=== PATIENT | female | born 1960 | race Caucasian/White ===

== ENCOUNTER 2016-05-21 18:58 | Emergency (ER) | payer OTHER ==
--- NOTE | 2016-05-21 19:51 | ERNOTE ---
ER Female HPI Date of Service: 05/21/16 Stated Complaint: UTI Time Seen by Provider: 05/21/16 19:21 Source: patient Exam Limitations: no limitations Immunizations: IMMUNIZATION HX Immunizations Up to Date Yes History of Influenza Vaccine Yes Hx Pneumococcal Vaccination Yes Allergies/Adverse Reactions: Allergies soy Allergy (Verified 05/21/16 19:11) Home Medications: HOME MEDICATIONS Calcium Carbonate/Vitamin D3 [Calcium 600-Vit D3 400 Tablet] 2 each PO DAILY [Last Taken 08/30/14 07:00 2 tabs] Melatonin 10 mg PO HS PRN 10/05/13 [Last Taken 08/29/14 21:00 10mg] Multivitamins [Multivitamin Kd] 1 cap PO DAILY 10/05/13 [Last Taken 21:00] DULoxetine HCL [Cymbalta] 30 mg PO DAILY 07/19/15 [Last Taken Unknown] Dexlansoprazole [Dexilant] 60 mg PO DAILY 07/19/15 [Last Taken Unknown] Solifenacin Succinate [Vesicare] 10 mg PO DAILY 07/19/15 [Last Taken Unknown] Metoclopramide HCl [Reglan] 5 mg PO ACHS #28 tab 07/20/15 [Last Taken Unknown] - History of Present Illness Narrative: Pt. comes in with c/o dysuria, frequency, urgency and RUQ pain for two days. Pt. denies any fever, SOB, NVD, but does state that she has intermittent vertigo that she is undergoing treatment for at this time. Pt. denies any alleviating or aggravating factors but does state that her symptoms are worse first thing in the morning. Review of Systems - Review of Systems Constitutional: Present: no symptoms reported. Absent: fever, chills, fatigue, malaise EYE: Present: no symptoms reported ENT: Present: no symptoms reported Respiratory: Present: no symptoms reported. Absent: shortness of breath, cough , wheezing Cardiology: Present: no symptoms reported. Absent: chest pain, palpitations, edema Gastrointestinal/Abdominal: Present: abdominal pain - RUQ. Absent: nausea, vomiting, diarrhea Genitourinary: Present: frequency, pain, dysuria, decreased urinary output. Absent: hematuria, discharge Musculoskeletal: Present: no symptoms reported. Absent: back pain, joint pain Skin: Present: no symptoms reported Neurological: Present: no symptoms reported All Other Systems: All systems neg except as marked - Patient's Past Medical History Patient History - Medical: Depression, GERD, Migraines, Osteoarthritis, Osteoporosis, Other - vertigo Patient History - Cardiac/Respiratory: No pertinent hx Patient History - Cancer: No Hx of Cancer Patient History - Surgical Procedures: Cholecystectomy, Gastric Bypass, Hysterectomy, Other - Family History Mother Family History - Cardiac/Respiratory: Coronary Heart Disease Father Family History - Cardiac/Respiratory: CVA/Stroke - Social History Living Situations: home Does anyone smoke in the home?: No Smoking Status: Never smoker Alcohol Use: rarely Drug Use: none Physical Exam - Physical Exam General Appearance: Present: wd/wn, alert, no apparent distress Eye Exam: Normal inspection: bilateral, PERRL: bilateral, EOMI: bilateral Ears, Nose, Throat: Present: normal ENT inspection, hearing grossly normal, normal pharynx Neck: Present: normal inspection, nontender. Absent: lymphadenopathy (R), lymphadenopathy (L) Respiratory: Present: no respiratory distress, normal breath sounds, no accessory muscle use, chest nontender, lungs clear Cardiovascular/Chest: Present: regular rate, rhythm, no murmur, normal peripheral pulses Gastrointestinal/Abdominal: Present: normal bowel sounds, nondistended, soft, no organomegaly, tenderness - RUQ mild. Absent: McBurney sign, Obturator sign, Muniz sign, Psoas sign Back Exam: Present: normal inspection, normal range of motion, no CVA tenderness , no vertebral tenderness Extremity Exam: Present: normal inspection Neurological Exam: Present: alert, oriented, normal mood/affect, no motor/ sensory deficits, digital recruiter II-XII nml as tested, normal cerebellar test Skin Exam: Present: normal color, warm/dry. Absent: pallor, skin rash ED Progress - Results and Orders Patient's Lab Results:: I have reviewed the patient's lab results. - Vital Signs Patient's Vital Signs:: I have reviewed the patient's vital signs. Vital Signs: Vital Signs 05/21/16 19:05 Temperature 35.9 C L Pulse Rate 76 Respiratory 14 Rate Blood Pressure 132/84 O2 Sat by Pulse 98 Oximetry - Progress/Reassessment Chief Complaint: Genitourinary Problem Departure Clinical Impression: Dehydration - Departure Disposition: Home self-care Condition: Good Instructions: Dehydration, Adult, [id number] Additional Instructions: Please follow up with your primary provider in 2-3 days if no improvement. Referrals: Laila Diaz ARNP [Primary Care Provider] -
[2016-05-21 20:22] LABS: Urine Bilirubin Negative (NEGATIVE); Urine Blood Negative /ul (NEGATIVE); Urine Ketone Negative (NEGATIVE); Urine Nitrite Negative (NEGATIVE); Urine Protein Negative (NEGATIVE); Urine Specific Gravity >=1.030 SP.GR. (1.005-1.010); Urine Urobilinogen Normal (NORMAL)
[2016-05-21 20:23] LABS: Urine Appearance Clear; Urine Bacteria None Seen; Urine Color Yellow; Urine Mucus Few - 1+; Urine RBC None Seen /hpf (0-5); Urine WBC 0-5 /hpf (0-5)
[2016-05-21 20:25] LABS: Hematocrit 36.5 % (37.0-47.0); Hemoglobin 11.6 gm/dL (12.5-16.0); Mean Cell Volume 86.7 fl (78-100); Mean Corpuscular Hemoglobin 27.6 pg (27-31); Mean Corpuscular Hgb Conc 31.8 g/dl (32-36); Mean Platelet Volume 9.2 fl (6.0-9.5); Neutrophil # 4.4 K/mm3 (1.3-6.0); Neutrophil % 56.4 % (42-75.0); Platelet Count 309 K/mm3 (150-450); Red Blood Count 4.21 M/mm3 (4.2-5.4); Red Cell Distribution Width 13.9 % (11.5-14.0); White Blood Count 7.8 K/mm3 (4.0-10.5)
[2016-05-21 20:40] LABS: Albumin * 3.7 gm/dl (3.4-5.0); Anion Gap 14.6 mmol/L (6.8-13.8); BUN/Creatinine Ratio 22.6 (9.0-21.6); Bilirubin, Total 0.2 mg/dL (0.0-1.1); Ca. Corrected For Albumin 8.6 mg/dL (8.4-10.2); Calcium * 8.7 mg/dL (7.9-10.9); Carbon Dioxide 27.2 mmol/L (24-32.6); Potassium 4.8 mmol/L (3.4-4.6); Total Protein 7.2 gm/dL (6.2-8.2)
[2016-05-21 20:52] VITALS: BP 135/81
== END 2016-05-21 21:36 | disposition home or self-care (01) ==
LOC: ER 18:58
DX: E86.0 Dehydration (principal); K21.9 Gastro-esophageal reflux disease without esophagitis; F32.9 Major depressive disorder, single episode, unspecified; Z98.84 Bariatric surgery status

== ENCOUNTER 2016-11-15 07:04 | Emergency (ER) | payer OTHER ==
--- NOTE | 2016-11-15 07:25 | ERNOTE ---
Upper Extremity HPI - General Extremities Pain Location: forearm: left, wrist: left Time Seen by Provider: 11/15/16 07:11 Source: patient Exam Limitations: no limitations - Immun/Allergies/Home Medications Immunizations: IMMUNIZATION HX Immunizations Up to Date Yes History of Influenza Vaccine Yes Hx Pneumococcal Vaccination Yes Allergies/Adverse Reactions: Allergies Allergy/AdvReac Type Severity Reaction Status Date / Time soy Allergy Verified 11/15/16 07:09 Home Medications: HOME MEDICATIONS Calcium Carbonate/Vitamin D3 [Calcium 600-Vit D3 400 Tablet] 2 each PO DAILY [Last Taken 08/30/14 07:00 2 tabs] Multivitamins [Multivitamin Kd] 1 cap PO DAILY 10/05/13 [Last Taken 21:00] DULoxetine HCL [Cymbalta] 30 mg PO DAILY 07/19/15 [Last Taken Unknown] Dexlansoprazole [Dexilant] 60 mg PO DAILY 07/19/15 [Last Taken Unknown] Metoclopramide HCl [Reglan] 5 mg PO ACHS #28 tab 07/20/15 [Last Taken Unknown] HYDROcodone/ACETAMINOPHEN [Lorcet 5-325 mg Tablet] 1 each PO QID PRN #20 tablet 11/15/16 [Last Taken Unknown] - History of Present Illness Narrative: Pt was at work at attempted to sit down on a chair and the chair moved and she fell on to her left outstretched hand. She complains of hand, wrist and distal forearm pain. Occurred: just prior to arrival Location of Incident: work Severity: moderate Method of Injury: Reports: fell Reason for Fall: Reports: other - chair moved Loss of Consciousness: Reports: no loss of consciousness Modifying Factors - (Improves): Reports: immobilization Modifying Factors - (Worsens): Reports: movement Associated Symptoms: Denies: tingling, weakness Other Injuries: Reports: none Review of Systems - Review of Systems Constitutional: Present: no symptoms reported EYE: Present: no symptoms reported ENT: Present: no symptoms reported Respiratory: Present: no symptoms reported Cardiology: Present: no symptoms reported Gastrointestinal/Abdominal: Present: no symptoms reported Genitourinary: Present: no symptoms reported Musculoskeletal: Present: See HPI. Absent: back pain, neck pain Skin: Present: no symptoms reported Neurological: Absent: numbness Endocrine: Present: no symptoms reported Hematologic/Lymphatic: Present: no symptoms reported Psych: Present: no symptoms reported - Patient's Past Medical History Patient History - Medical: Depression, GERD, Migraines, Osteoarthritis, Osteoporosis, Other Patient History - Cardiac/Respiratory: No pertinent hx Patient History - Cancer: No Hx of Cancer Patient History - Surgical Procedures: Cholecystectomy, Gastric Bypass, Hysterectomy, Other Patient History - Other: None - Family History Mother Family History - Cardiac/Respiratory: Coronary Heart Disease Father Family History - Medical: No pertinent hx Family History - Cardiac/Respiratory: CVA/Stroke, Hyperlipidemia Family History - Cancer: No pertinent family hx - Social History Living Situations: home Abuse History: No History of abuse Psych History: Hx of Depression Does anyone smoke in the home?: No Alcohol Use: rarely Drug Use: none - Immunizations Immunizations Up to Date: Yes Hx Pneumococcal Vaccination: Yes History of Influenza Vaccine: Yes Physical Exam - Physical Exam General Appearance: Present: wd/wn, alert, mild distress Ears, Nose, Throat: Present: normal ENT inspection Neck: Present: normal inspection, nontender, supple Back Exam: Present: normal inspection, normal range of motion Extremity Exam: Present: normal except - - left wrist tenderness both radial and ulnar sides and up 4-6 cm up wrist. left hand more radial side proximal medicarpals Skin Exam: Present: warm/dry, other - mild erythema of left wrist ED Progress - Vital Signs Vital Signs: Vital Signs 11/15/16 07:06 Temperature 35.9 C L Pulse Rate 76 Respiratory 12 Rate Blood Pressure 166/76 O2 Sat by Pulse 99 Oximetry - X-Ray X-Ray #1 X-Ray: wrist - left: non-displaced oblique distal radius fracture extending into the joint space. minimally displaced ulnar styloid fracture X-Ray #2 X-Ray: hand Interpretation: Reviewed by me X-ray Comments: distal radius fracture and ulnar styloid fracture - Progress/Reassessment Chief Complaint: Wrist Injury/Pain Progress:: Improved Progress Note-Subjective: 11/15/16 07:55 Spoke with [facility], He recommends OCL and call for appt. in the clinic. Departure Clinical Impression: Radius distal fracture Qualifiers: Encounter type: initial encounter Fracture type: closed Fracture morphology: other intra-articular Laterality: left Qualified Code(s): S52.572A - Other intraarticular fracture of lower end of left radius, initial encounter for closed fracture Fracture of ulnar styloid Qualifiers: Encounter type: initial encounter Fracture type: closed Fracture alignment: nondisplaced Laterality: left Qualified Code(s): S52.615A - Nondisplaced fracture of left ulna styloid process, initial encounter for closed fracture - Departure Disposition: Home Follow Up Needed Condition: Good Instructions: Colles Fracture Additional Instructions: See orthopedics as scheduled. take pain meds as needed. Keep splint on until seen by orthopedics Referrals: Candido [facility] PAC [[facility]] - Prescriptions: HYDROcodone/ACETAMINOPHEN [Lorcet 5-325 mg Tablet] 1 each PO QID PRN #20 tablet PRN Reason: Pain
--- OUTSIDE RECORDS SUMMARY | 2016-11-15 07:43 | XMS REPORT | Continuity of Care Document ---
:1960 Author Organization [facility] [place] [address] Care Team Providers Name Role Phone Unavailable Primary Care Provider Unavailable Source Comments This disclosure is being made pursuant to the [employer] program and maynot contain all information available regarding this patient.[facility] Active Allergies and Adverse Reactions Not on File Current Medications Be aware that medications may not be up to date as of this document. Alwaysverify current medications with the patient. Not on file Active Problems Not on file Social History Tobacco Use Types Packs/Day Years Used Date Never Assessed Plan of Care Health Maintenance Due Date Last Done Comments Retired-Pertussis Vaccine Adult 1980 Retired-Tetanus Vaccine Adult 1980 Pap Smear 1982 Mammogram 2001 Colonoscopy 10/10/2011 Well Adult Visit 10/10/2011 Retired-INFLUENZA VACCINE 01/18/2015 Results from Last 3 Months Not on file
[2016-11-15] MEDS ORDERED: ONDANSETRON HCL/PF 2 MG/ML VIAL IV ONE (07:54)
[2016-11-15] MEDS ORDERED: NALBUPHINE HCL 20 MG/ML AMPUL IV ONE (07:54)
[2016-11-15] MEDS ORDERED: ONDANSETRON HCL/PF 2 MG/ML VIAL ONE (07:57)
[2016-11-15] MEDS ORDERED: NALBUPHINE HCL 20 MG/ML AMPUL ONE (07:57)
[2016-11-15 08:05] VITALS: BP 156/84
== END 2016-11-15 08:15 | disposition home or self-care (01) ==
LOC: ER 07:04
PROC: 2W3DX1Z Immobilization of Left Lower Arm using Splint (ICD-10-PCS; principal; 2016-11-15)
DX: S52.572A Other intraarticular fracture of lower end of left radius, initial encounter for closed fracture (principal); S52.615A Nondisplaced fracture of left ulna styloid process, initial encounter for closed fracture; W07.XXXA Fall from chair, initial encounter; Y93.89 Activity, other specified; Y92.238 Other place in hospital as the place of occurrence of the external cause; Y99.0 Civilian activity done for income or pay; F32.9 Major depressive disorder, single episode, unspecified
CPT/HCPCS: 29125; 73110; 73130; 96374; 96375; 99284; J2405

== ENCOUNTER 2016-12-10 14:16 | Day surgery (SDC) | payer OTHER ==
[~2016-12-10 14:16] MED LIST: RINGERS SOLUTION,LACTATED 1,000 ML IV PRN; ceFAZolin SODIUM 1 GM VIAL IV PRN
--- OUTSIDE RECORDS SUMMARY | 2016-12-10 14:19 | XMS REPORT | Clinical Summary ---
:1960 Author Organization [facility] [place] [address] Care Team Providers Name Role Phone Unavailable Primary Care Provider Unavailable Source Comments This disclosure is being made pursuant to the [employer] program and maynot contain all information available regarding this patient.[facility] Allergies Not on File Current Medications Be aware that medications may not be up to date as of this document. Alwaysverify current medications with the patient. Not on file Active Problems Not on file Social History Tobacco Use Types Packs/Day Years Used Date Never Assessed Sex Assigned at Date Recorded Not on file Last Filed Vital Signs Not on file Plan of Treatment Health Maintenance Due Date Last Done Comments Retired-Pertussis Vaccine Adult 1980 Retired-Tetanus Vaccine Adult 1980 Pap Smear 1982 Mammogram 2001 Colonoscopy 10/10/2011 Well Adult Visit 10/10/2011 Retired-INFLUENZA VACCINE 01/18/2015 Results Not on filefrom Last 3 Months
[2016-12-10] MEDS ORDERED: RINGERS SOLUTION,LACTATED 1,000 ML IV ONE ×2 (15:05→17:04)
--- NOTE | 2016-12-10 18:34 | OR ---
Operative Report - Dictated Report Narrative: Date: 12/10/2016 Surgeon: Adriano Cortes M.D. Ergonomics Consultant: [facility] PA-C Preoperative diagnosis: Left Distal radius fracture 4 fragments with intra- articular extension Postoperative diagnosis: Left Distal radius fracture 4 fragments with intra- articular extension Operation: 1 - Open reduction internal fixation of left distal radius fracture 4 fragments with intra-articular extension 2 - Intraoperative interpretation of x-rays Retained implants: [employer] D rad left standard distal radius plate with associated screws Anesthesia: General plus regional Tourniquet time: 77 Minutes at 250 mmHg Estimated blood loss: Minimal Drains: None Specimen: None Complications: None Indications: Mrs. Thibodeaux is a 56-year-old female who injured the left arm after foraminal fall. They were initially treated in the ER and splinted. Seen in the clinic and discuss the options for treatment. Initially she elected for nonoperative treatment however she had some subsidence or fracture notable displacement of the intra-articular fracture. Based on these findings we recommended surgical treatment. She wished to proceed with surgical treatment. The risks and benefits alternatives were discussed. Risks of , blood clots, bleeding, infection, nerve/tendon/blood vessel injury, malunion, nonunion , failure of implants, prominent implants, delayed tendon rupture, and need for additional procedures were discussed. Consent was obtained in the clinic. Procedure: After marking the correct extremity in the preoperative holding area, the patient was taken to the operating room. A timeout was performed. Anesthesia placed a regional block followed by general anesthetic. The arm was placed on an armboard with all bony prominences well-padded on the rest of the body. IV antibiotics consisting of Ancef were administered. A well-padded tourniquet was applied to the upper surgical arm. The arm was pre-scrubbed with chlorhexidine and prepped and draped in a standard sterile fashion. After exsanguinating the extremity and inflating the tourniquet to 250 mmHg, a longitudinal incision was made over the flexor carpi radialis. This was sharply dissected down through the skin to the tendon sheath. The tendon sheath was incised in line with the tendon. The tendon was mobilized radially, and the deep fascia was incised. The flexor pollicis longus was mobilized ulnarly exposing the pronator quadratus. Pronator quadratus was elevated off the radial aspect of the distal radius exposing the fracture. The fracture was noted to be similar to a plateau and that there was a intra-articular displaced isolated fragment. A bone window was made over the volar aspect of the wrist. The fractures proximal and 3 weeks old and thus the fracture fragments had begin to heal some. An osteotome was utilized in order to elevate the volar and dorsal aspects of the fragment. A small dorsal incision was made in order to assist with the dorsal ulnar fragment by windowing around the extensor tendons. There was a radial styloid and a dorsal ulnar fragment which were mobilized back in the place. Using mini C-arm, the fracture was reduced and preliminarily pinned in the place through the radial styloid. Once it was felt that we adequately preliminarily stabilized the fracture, the plate was pinned in the place. This was visualized on AP and lateral views to be centered over the distal radius as well as not excessively distal. Once it was felt that the plate was in the correct position a series of distal locking and proximal nonlocking and locking screws were placed. Mini C-arm was utilized in order to confirm the length and placement of the screws. Once the wrist was stabilized, final images were obtained to ensure that the screws were not prominent dorsally nor into the joint space. The distal radial ulnar joint was then stressed in supination and pronation and neutral, and it was noted to be stable. It was felt that the fracture was adequately stabilized and the wounds were then thoroughly irrigated. The pronator quadratus was repaired over the plate using 4-0 Vicryl. The wounds were again thoroughly irrigated and tourniquet was deflated. Hemostasis was obtained and there was no excessive bleeding. Subcutaneous tissue was closed with 4-0 Vicryl and the skin with 4-0 nylon. Sterile dressings consisting of Xeroform, 4 x 4, soft roll, and a well- padded dorsal plaster short arm splint was applied. All sponge, sharp, and instrument counts were correct prior to closing the wounds. The patient was awoken and transferred to the postanesthesia care unit in stable condition.
--- NOTE | 2016-12-10 19:07 | OR ---
Anesthesia Procedure Note - Anesthesia Procedure Note Narrative: Vital Signs - Last Taken Temp 36.8 C 12/10/16 18:40 Pulse 75 12/10/16 18:55 Resp 19 12/10/16 18:55 BP 123/60 12/10/16 18:55 Pulse Ox 100 12/10/16 18:55 O2 Oxygen Delivery Method Room Air 12/10/16 19:03 ANESTHESIA PROCEDURE NOTE Date of procedure: 12/10/2016. Time of procedure: 1635. Performed by: Estuardo Chauhan CRNA [employer] Marketing Manager: Sandra Delarosa RN . Preprocedure diagnosis: Right radius fracture. Post procedure diagnosis: Same. Procedure: Axillary nerve block Indications: Postoperative analgesia. Findings: Patient was placed in the supine position and sedated. Ultrasound was used to identify brachial plexus nerves located in the axilla. A 22-gauge Stimuplex regional block needle and nerve stimulator were used to inject a total of 40 mL of 0.5% Marcaine with epinephrine 1 200,000. Images retained and radiology database. ChloraPrep was used on the skin for sterilization. One mL of 1% Xylocaine was infiltrated at the insertion site. EBL: Minimal. Fluids: N/A. Specimen: N/A. Post procedure condition: The patient tolerated the procedure well. No complications were noted. Thank you for this consultation Estuardo Chauhan CRNA
[2016-12-10 20:45] VITALS: BP 117/71
== END 2016-12-10 14:17 | disposition home or self-care (01) ==
LOC: AMB 14:16
PROVIDERS: ATTEND Orthopaedic Surgery
PROC: 3E0T3BZ Introduction of Anesthetic Agent into Peripheral Nerves and Plexi, Percutaneous Approach (ICD-10-PCS; 2016-12-10)
PROC: 0PSJ04Z Reposition Left Radius with Internal Fixation Device, Open Approach (ICD-10-PCS; principal; 2016-12-10 19:30)
DX: S52.572A Other intraarticular fracture of lower end of left radius, initial encounter for closed fracture (principal); E78.5 Hyperlipidemia, unspecified; M19.90 Unspecified osteoarthritis, unspecified site; K21.9 Gastro-esophageal reflux disease without esophagitis; M79.7 Fibromyalgia; E66.9 Obesity, unspecified; Z68.33 Body mass index [BMI] 33.0-33.9, adult; W19.XXXA Unspecified fall, initial encounter

== ENCOUNTER 2018-07-19 19:22 | Observation (INO) ==
[2018-07-19] MEDS ORDERED: NITROGLYCERIN 0.4 MG/TAB BTL SL PRN (19:38)
[2018-07-19] MEDS ORDERED: NITROGLYCERIN 0.4 MG/TAB BTL SL ONE (19:42)
--- NOTE | 2018-07-19 19:44 | ERNOTE ---
<Bay Ramos - Last Filed: 07/19/18 19:39> Chest Pain/Cardiac HPI Date of Service: 07/19/18 Chief Complaint: Chest Pain Time Seen by Provider: 07/19/18 19:35 Source: patient Exam Limitations: no limitations Immunizations: IMMUNIZATION HX Immunizations Up to Date Yes History of Influenza Vaccine Yes Hx Pneumococcal Vaccination Yes Allergies/Adverse Reactions: Allergies gabapentin Adverse Reaction (Mild, Verified 06/16/18 08:42) DOUBLE VISION NSAIDS (Non-Steroidal Anti-Inflamma Adverse Reaction (Mild, Verified 06/16/18 08:42) UNABLE TO TAKE D/T GASTRIC BYPASS SURGERY soy Adverse Reaction (Mild, Verified 06/16/18 08:42) SOY PROTEIN CAUSE GI UPSET environmental allergies Allergy (Mild, Uncoded 05/06/18 10:16) Home Medications: HOME MEDICATIONS Calcium Carbonate/Vitamin D3 [Calcium 600-Vit D3 400 Tablet] 1 ea PO DAILY 10/05/13 [Last Taken 03/27/18] Blood-Glucose Meter [Blood Glucose Monitoring] 1 ea MC BID 12/04/16 [Last Taken Unknown] Cholecalciferol (Vitamin D3) [Vitamin D3] 5,000 unit PO DAILY 12/04/16 [Last Taken 03/27/18] Ferrous Sulfate [Iron] 325 mg PO DAILY 12/04/16 [Last Taken 03/27/18] Vitamin B Complex 1 ea PO DAILY 12/04/16 [Last Taken 03/27/18] TENS unit and electrodes combo pack See Dose Instructions .ROUTE .MEDSUPPLY #1 ea 12/30/17 [Last Taken Unknown] acetaminophen 500 mg tablet 1,000 mg PO QID PRN tab 12/30/17 [Last Taken Unknown] blood sugar diagnostic strips See Dose Instructions .ROUTE .MEDSUPPLY #20 ea 12/30/17 [Last Taken Unknown] fesoterodine ER 4 mg tablet,extended release 24 hr 4 mg PO DAILY 12/30/17 [Last Taken 03/27/18] lancets 28 gauge See Dose Instructions .ROUTE .MEDSUPPLY #25 ea 12/30/17 [Last Taken Unknown] multivitamin capsule 1 cap PO DAILY 12/30/17 [Last Taken 03/27/18] gabapentin 300 mg capsule 300 mg PO PRN PRN 02/18/18 [Last Taken Unknown] dexlansoprazole 30 mg capsule,biphase delayed release 30 mg PO DAILY 12/18/18 [Last Taken Unknown] mecobalamin (vitamin B12) 5,000 mcg disintegrating tablet 5,000 mcg PO DAILY tab 06/16/18 [Last Taken Unknown] Narrative: patient sitting in theater developed chest pain with radiation iinto neck Timing: constant Severity/Quality: moderate, dull, pressure Location: substernal, central Chest Pain Radiation: neck Activities at Onset: none Modifying Factors - Improves: Present: nothing Modifying Factors - Worsens: Present: nothing Nitro Today/Relief: no nitro taken today Aspirin Treatment Today: no aspirin today Associated Symptoms: Present: denies symptoms Prior Chest Pain/Cardiac Workup: Reports: no prior cardiac workup Review of Systems - Review of Systems Constitutional: Present: See HPI EYE: Present: no symptoms reported ENT: Present: no symptoms reported Respiratory: Present: no symptoms reported Cardiology: Present: See HPI, chest pain Gastrointestinal/Abdominal: Present: no symptoms reported Genitourinary: Present: no symptoms reported Musculoskeletal: Present: no symptoms reported Skin: Present: no symptoms reported Neurological: Present: no symptoms reported Endocrine: Present: no symptoms reported Hematologic/Lymphatic: Present: no symptoms reported Psych: Present: no symptoms reported All Other Systems: All systems neg except as marked Medical History (Last Reviewed 06/16/18 @ 08:44 by Nithya La RN) Anal fistula Onset Date: Unknown Anxiety disorder Onset Date: ~10/19/12 Cervical disc disease Onset Date: ~10/19/12 Chronic headaches Onset Date: Unknown Dyspepsia Onset Date: Unknown Enthesopathy of hip region Onset Date: Unknown Fibromyalgia Onset Date: ~10/19/12 Hyperlipidemia Onset Date: Unknown Labral tear of shoulder R shoulder- repaired in 2013 Menometrorrhagia Onset Date: Unknown Motion sickness Onset Date: Unknown Obesity Onset Date: Unknown Osteoarthritis Onset Date: Unknown Osteopenia Pharyngitis Onset Date: ~03/2005 Restless leg syndrome Onset Date: Unknown Sleep disorder Onset Date: Unknown Allergic rhinitis Onset Date: ~10/19/12 Abdominal pain Onset Date: Unknown Carpal tunnel syndrome Onset Date: Unknown Radius fracture Onset Date: ~11/15/16 left Sprain and strain Onset Date: ~04/03/05 Wrist pain, right Onset Date: Unknown Surgical History: Surgical History (Last Reviewed 06/16/18 @ 08:44 by Nithya La RN) S/P wrist surgery Onset Date: 03/28/18 removal of deep implants Status post hardware removal left distal radius history of trigger point injections stomach Gastric bypass status for obesity Onset Date: ~12/21/09 gastroplasty rouxeny H/O colonoscopy Onset Date: ~2010 H/O esophagogastroduodenoscopy Onset Date: ~03/19/13 with biopsy H/O parathyroidectomy Onset Date: ~10/23/16 H/O reduction mammoplasty Onset Date: ~2000 H/O total vaginal hysterectomy Onset Date: ~04/2007 [place] H/O tubal ligation Onset Date: ~1987 History of arthroscopic surgery of shoulder Onset Date: ~10/14/13 right History of bladder surgery Onset Date: ~06/2014 History of open reduction and internal fixation (ORIF) procedure Onset Date: ~12/10/16 left distal radius fracture History of rectal surgery Onset Date: ~2011 anal/rectal repairs, placement of seton-2011 History of salpingo-oophorectomy Onset Date: ~04/2007 History of surgery on arm Onset Date: ~1985 right-crushed radius Hx laparoscopic cholecystectomy Onset Date: ~05/27/07 S/P epidural steroid injection Onset Date: ~2010 Family History: Family History (Last Reviewed 06/16/18 @ 08:44 by Nithya La RN) Father Diabetes COPD (chronic obstructive pulmonary disease) Grandfather , maternal Cancer colon Grandfather , maternal Diabetes Cancer colon Grandmother , paternal Heart disease maternal Mother Cancer breast cancer-dx age 65 Sister Fibromyalgia Grandmother Heart disease paternal Sister Unknown whether patient has any health problems Son Alive and well Son Alive and well Social History: Preferred Language Indonesian Smoking Status Never smoker Have you smoked in the past 12 No months Do you dip or chew tobacco No Abuse History No History of abuse Psych History Hx of Depression Alcohol Use none Drug Use none (Last Updated 06/16/18 @ 09:56 by JC Eller) No Social History Section defined Physical Exam - Physical Exam General Appearance: Present: moderate distress, anxious Head Exam: Present: normal inspection, no evidence of injury Eye Exam: Normal inspection: bilateral, PERRL: bilateral, EOMI: bilateral Ears, Nose, Throat: Present: normal ENT inspection, normal pharynx Neck: Present: normal inspection, nontender Respiratory: Present: no respiratory distress, normal breath sounds, no accessory muscle use, chest nontender, lungs clear Cardiovascular/Chest: Present: regular rate, rhythm, no murmur, normal peripheral pulses Gastrointestinal/Abdominal: Present: normal bowel sounds, nontender, nondistended, soft, no organomegaly Back Exam: Present: normal inspection, normal range of motion, no CVA tenderness, no vertebral tenderness Extremity Exam: Present: normal inspection, non-tender, normal range of motion, no edema Neurological Exam: Present: alert, oriented, normal mood/affect, no motor/sensory deficits Skin Exam: Present: normal color, warm/dry Lymphatic Exam: Present: no adenopathy Progress - Vital Signs Vital Signs: Vital Signs 07/19/18 19:29 Temperature 36.4 C Pulse Rate 90 Respiratory Rate 18 Blood Pressure 169/86 H - EKG EKG #1 EKG: NSR - Progress/Reassessment Chief Complaint: Chest Pain Progress:: Unchanged - Transfer of Care Physician Sign Out: Bay Ramos Receiving Physician: Madalyn Jeter Expected Disposition: Admit Plan - Plan Plan: to admit Departure Clinical Impression: Chest pain - Departure Disposition: Still a patient Condition: Stable <Madalyn Jeter - Last Filed: 07/19/18 21:19> Chest Pain/Cardiac HPI Immunizations: IMMUNIZATION HX Immunizations Up to Date Yes History of Influenza Vaccine Yes Hx Pneumococcal Vaccination Yes Medical History (Last Reviewed 07/19/18 @ 19:35 by Yeimi Sanchez RN) Anal fistula Onset Date: Unknown Anxiety disorder Onset Date: ~10/19/12 Cervical disc disease Onset Date: ~10/19/12 Chronic headaches Onset Date: Unknown Dyspepsia Onset Date: Unknown Enthesopathy of hip region Onset Date: Unknown Fibromyalgia Onset Date: ~10/19/12 Hyperlipidemia Onset Date: Unknown Labral tear of shoulder R shoulder- repaired in 2013 Menometrorrhagia Onset Date: Unknown Motion sickness Onset Date: Unknown Obesity Onset Date: Unknown Osteoarthritis Onset Date: Unknown Osteopenia Pharyngitis Onset Date: ~03/2005 Restless leg syndrome Onset Date: Unknown Sleep disorder Onset Date: Unknown Allergic rhinitis Onset Date: ~10/19/12 Abdominal pain Onset Date: Unknown Carpal tunnel syndrome Onset Date: Unknown Radius fracture Onset Date: ~11/15/16 left Sprain and strain Onset Date: ~04/03/05 Wrist pain, right Onset Date: Unknown Surgical History: Surgical History (Last Reviewed 07/19/18 @ 19:35 by Yeimi Sanchez RN) S/P wrist surgery Onset Date: 03/28/18 removal of deep implants Status post hardware removal left distal radius history of trigger point injections stomach Gastric bypass status for obesity Onset Date: ~12/21/09 gastroplasty rouxeny H/O colonoscopy Onset Date: ~2010 H/O esophagogastroduodenoscopy Onset Date: ~03/19/13 with biopsy H/O parathyroidectomy Onset Date: ~10/23/16 H/O reduction mammoplasty Onset Date: ~2000 H/O total vaginal hysterectomy Onset Date: ~04/2007 [place] H/O tubal ligation Onset Date: ~1987 History of arthroscopic surgery of shoulder Onset Date: ~10/14/13 right History of bladder surgery Onset Date: ~06/2014 History of open reduction and internal fixation (ORIF) procedure Onset Date: ~12/10/16 left distal radius fracture History of rectal surgery Onset Date: ~2011 anal/rectal repairs, placement of seton-2011 History of salpingo-oophorectomy Onset Date: ~04/2007 History of surgery on arm Onset Date: ~1985 right-crushed radius Hx laparoscopic cholecystectomy Onset Date: ~05/27/07 S/P epidural steroid injection Onset Date: ~2010 Family History: Family History (Last Reviewed 06/16/18 @ 08:44 by Nithya La RN) Father Diabetes COPD (chronic obstructive pulmonary disease) Grandfather , maternal Cancer colon Grandfather , maternal Diabetes Cancer colon Grandmother , paternal Heart disease maternal Mother Cancer breast cancer-dx age 65 Sister Fibromyalgia Grandmother Heart disease paternal Sister Unknown whether patient has any health problems Son Alive and well Son Alive and well Social History: Preferred Language Indonesian Smoking Status Never smoker Have you smoked in the past 12 No months Do you dip or chew tobacco No Abuse History No History of abuse Psych History Hx of Depression Alcohol Use none Drug Use none (Last Updated 06/16/18 @ 09:56 by JC Eller) No Social History Section defined Progress - Results and Orders Patient's Lab Results:: I have reviewed the patient's lab results. - Vital Signs Patient's Vital Signs:: I have reviewed the patient's vital signs. Vital Signs: Vital Signs 07/19/18 19:29 07/19/18 19:39 07/19/18 19:47 Temperature 36.4 C Pulse Rate 90 85 95 Respiratory Rate 18 18 Blood Pressure 169/86 H 174/81 H O2 Sat by Pulse Oximetry 98 07/19/18 20:04 07/19/18 20:30 Temperature Pulse Rate 85 74 Respiratory Rate Blood Pressure 122/68 120/75 O2 Sat by Pulse Oximetry 98 99 - EKG EKG #1 EKG: NSR - 84 - X-Ray X-Ray #1 X-Ray: chest - negative Plan - Plan Plan: discussed with Dr. Ortiz, will admit for chest pain rule out, she is chest pain free now. She did receive nitro, unable to take Aspirin due to gastric bypass
[2018-07-19 20:07] LABS: Hematocrit 40.2 % (37.0-47.0); Hemoglobin 12.9 gm/dL (12.5-16.0); Mean Cell Volume 88.4 fl (78-100); Mean Corpuscular Hemoglobin 28.4 pg (27-31); Mean Corpuscular Hgb Conc 32.1 g/dl (32-36); Mean Platelet Volume 9.6 fl (8-12.5); Neutrophil # 4.8 K/mm3 (1.3-6.0); Neutrophil % 57.4 % (42-75.0); Platelet Count 273 K/mm3 (150-450); Red Blood Count 4.55 M/mm3 (4.2-5.4); Red Cell Distribution Width 13.2 % (11.5-14.0); White Blood Count 8.3 K/mm3 (4.0-10.5)
[2018-07-19 20:19] LABS: Prothrombin Time (Patient) 9.9 Seconds (9.1-10.7)
[2018-07-19 20:27] LABS: ALT 30 U/L (19-67); AST 22 U/L (0-48); Albumin * 3.6 gm/dl (3.4-5.0); Alkaline Phosphatase * 71 U/L (50-170); Anion Gap 14.1 mmol/L (6.8-13.8); BUN/Creatinine Ratio 21.3 (9.0-21.6); Bilirubin, Total 0.2 mg/dL (0.0-1.1); Blood Urea Nitrogen 19 mg/dL (3-23); Ca. Corrected For Albumin 8.8 mg/dL (8.4-10.2); Calcium * 8.8 mg/dL (7.9-10.9); Carbon Dioxide 27.7 mmol/L (24-32.6); Chloride 106 mmol/L (97-106); Glucose * 66 mg/dL (70-110); Potassium 3.8 mmol/L (3.4-4.6); Sodium 144 mmol/L (132-142); Total Protein 7.1 gm/dL (6.2-8.2); Troponin I Less than 0.017 ng/mL (0.00-0.10)
[2018-07-19 20:32] LABS: Partial Thrombolplastin Time 23.8 Seconds (24-32)
[2018-07-19] MEDS ORDERED: ENOXAPARIN SODIUM 100 MG/ML SYRG SC SCH (21:15)
[2018-07-19] MEDS ORDERED: ENOXAPARIN SODIUM 30 MG/0.3 ML SYRG SC ONE (22:53)
[2018-07-20] MEDS ORDERED: ACETAMINOPHEN 500 MG TABLET PO PRN (08:17)
[2018-07-20] MEDS ORDERED: GABAPENTIN 300 MG CAPSULE PO PRN (08:17)
--- NOTE | 2018-07-20 08:44 | HP ---
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 The patient had dinner date with her but she did not have any appetite and did not eat much. They watched a movie after that and a few minutes into the movie she started having some facial flushing, palpitations associated with chest pressure, 6/10, as if someone was sitting on her chest, nonradiating. She told her to bring her to the emergency room and her pain got better af ter taking 2 nitroglycerin's after 1 hour. Because of her history of gastric bypass and not able to take aspirin daily they gave her Lovenox. Her troponin and EKG were normal. She was admitted under our chest pain protocol for observation. Her second set of EKG and and troponin were still within normal limits. She no longer has chest pain. Medical History (Last Reviewed 07/19/18 @ 22:15 by Deepthi Beverly RN) Anal fistula Onset Date: Unknown Anxiety disorder Onset Date: ~10/19/12 Cervical disc disease Onset Date: ~10/19/12 Chronic headaches Onset Date: Unknown Dyspepsia Onset Date: Unknown Enthesopathy of hip region Onset Date: Unknown Fibromyalgia Onset Date: ~10/19/12 Hyperlipidemia Onset Date: Unknown Labral tear of shoulder R shoulder- repaired in 2013 Menometrorrhagia Onset Date: Unknown Motion sickness Onset Date: Unknown Obesity Onset Date: Unknown Osteoarthritis Onset Date: Unknown Osteopenia Pharyngitis Onset Date: ~03/2005 Restless leg syndrome Onset Date: Unknown Sleep disorder Onset Date: Unknown Allergic rhinitis Onset Date: ~10/19/12 Abdominal pain Onset Date: Unknown Carpal tunnel syndrome Onset Date: Unknown Radius fracture Onset Date: ~11/15/16 left Sprain and strain Onset Date: ~04/03/05 Wrist pain, right Onset Date: Unknown Surgical History: Surgical History (Last Reviewed 07/19/18 @ 22:15 by Deepthi Beverly RN) S/P wrist surgery Onset Date: 03/28/18 removal of deep implants Status post hardware removal left distal radius history of trigger point injections stomach Gastric bypass status for obesity Onset Date: ~12/21/09 gastroplasty rouxeny H/O colonoscopy Onset Date: ~2010 H/O esophagogastroduodenoscopy Onset Date: ~03/19/13 with biopsy H/O parathyroidectomy Onset Date: ~10/23/16 H/O reduction mammoplasty Onset Date: ~2000 H/O total vaginal hysterectomy Onset Date: ~04/2007 [place] H/O tubal ligation Onset Date: ~1987 History of arthroscopic surgery of shoulder Onset Date: ~10/14/13 right History of bladder surgery Onset Date: ~06/2014 History of open reduction and internal fixation (ORIF) procedure Onset Date: ~12/10/16 left distal radius fracture History of rectal surgery Onset Date: ~2011 anal/rectal repairs, placement of seton-2011 History of salpingo-oophorectomy Onset Date: ~04/2007 History of surgery on arm Onset Date: ~1985 right-crushed radius Hx laparoscopic cholecystectomy Onset Date: ~05/27/07 S/P epidural steroid injection Onset Date: ~2010 Family History: Family History (Last Reviewed 07/19/18 @ 22:15 by Deepthi Beverly RN) Father Diabetes COPD (chronic obstructive pulmonary disease) Grandfather , maternal Cancer colon Grandfather , maternal Diabetes Cancer colon Grandmother , paternal Heart disease maternal Mother Cancer breast cancer-dx age 65 Sister Fibromyalgia Grandmother Heart disease paternal Sister Unknown whether patient has any health problems Son Alive and well Son Alive and well Social History: Patient Lives/Resources Home Utilized Occupation Registration Preferred Language Nigerien Do you have any alevism or Yes: [employer] cultural preference? Smoking Status Never smoker Have you smoked in the past 12 No months Do you dip or chew tobacco No Abuse History No History of abuse Psych History Hx of Depression Alcohol Use none Drug Use none (Last Updated 06/16/18 @ 09:56 by JC Eller) No Social History Section defined Review Of Systems (GEN) - Review of Systems Generalized/Overall Review: Absent: Weakness, Chills, Fever EENTM: Absent: Blurred Vision Respiratory: Absent: Cough, Shortness of Breath, Orthopnea Cardiac: Present: Chest Pain, Palpitations. Absent: Edema, Syncope Abdominal: Absent: Nausea, Vomiting, Abdominal Pain Genitourinary: Absent: Urgency, Frequency Musculoskeletal: Present: Joint Pain, Neck Pain Neurological: Absent: Headache Skin: Absent: Rash, Bruising Endocrine: Absent: Intolerance to Cold, Intolerance to Heat Immunizations: IMMUNIZATION HX Immunizations Up to Date Yes History of Influenza Vaccine Yes Hx Pneumococcal Vaccination Yes Allergies/Adverse Reactions: Allergies Allergy/AdvReac Type Severity Reaction Status Date / Time gabapentin AdvReac Mild DOUBLE Verified 07/20/18 00:18 VISION NSAIDS (Non-Steroidal AdvReac Mild UNABLE TO Verified 06/16/18 08:42 Anti-Inflamma TAKE D/T GASTRIC BYPASS SURGERY soy AdvReac Mild SOY Verified 06/16/18 08:42 PROTEIN CAUSE GI UPSET environmental allergies Allergy Mild Uncoded 05/06/18 10:16 Home Medications: HOME MEDICATIONS Calcium Carbonate/Vitamin D3 [Calcium 600-Vit D3 400 Tablet] 1 ea PO DAILY 10/05/13 [Last Taken 07/19/18] Blood-Glucose Meter [Blood Glucose Monitoring] 1 ea MC BID PRN 12/04/16 [Last Taken Unknown] Cholecalciferol (Vitamin D3) [Vitamin D3] 5,000 unit PO DAILY 12/04/16 [Last Taken 07/19/18] Ferrous Sulfate [Iron] 325 mg PO DAILY 12/04/16 [Last Taken 03/27/18] Vitamin B Complex 1 ea PO DAILY 12/04/16 [Last Taken 07/19/18] TENS unit and electrodes combo pack See Dose Instructions .ROUTE .MEDSUPPLY #1 ea 12/30/17 [Last Taken Unknown] acetaminophen 500 mg tablet 1,000 mg PO QID PRN tab 12/30/17 [Last Taken Unknown] blood sugar diagnostic strips See Dose Instructions .ROUTE .MEDSUPPLY #20 ea 12/30/17 [Last Taken Unknown] fesoterodine ER 4 mg tablet,extended release 24 hr 4 mg PO DAILY 12/30/17 [Last Taken 07/19/18] lancets 28 gauge See Dose Instructions .ROUTE .MEDSUPPLY #25 ea 12/30/17 [Last Taken Unknown] multivitamin capsule 1 cap PO DAILY 12/30/17 [Last Taken 07/19/18] gabapentin 300 mg capsule 300 mg PO PRN PRN 02/18/18 [Last Taken Unknown] dexlansoprazole 30 mg capsule,biphase delayed release 30 mg PO DAILY 05/06/18 [Last Taken 07/19/18] mecobalamin (vitamin B12) 5,000 mcg disintegrating tablet 5,000 mcg PO DAILY tab 06/16/18 [Last Taken 07/19/18] Nitroglycerin [Nitrostat] 0.4 mg SUBLINGUAL Q5MIN PRN #14 btl 07/20/18 [Last Taken Unknown] Exam - Exam Vital Signs: Vital Signs - Last Taken Temp 36.7 C 07/20/18 08:21 Pulse 73 07/20/18 08:23 Resp 14 07/20/18 08:21 BP 98/60 07/20/18 08:21 Pulse Ox 96 07/20/18 08:21 Constitutional: Present: Alert, Oriented x3, Cooperative ENT Exam: Present: hearing grossly normal Eye Exam: bilateral eye: normal inspection, PERRL, EOMI Neck: Present: supple Respiratory: Present: lungs clear, No rales, No wheezing Cardiovascular/Chest: Present: regular rate, rhythm, no JVD, no murmur Abdomen: Present: Normal bowel sounds, soft, nontender, nondistended Extremity: Present: no pedal edema, no calf tenderness Diagnostic Studies: Abnormal Lab Results 07/19/18 07/19/18 07/19/18 Range/Units 19:55 19:55 19:55 Monocytes % 9.8 H (0.0-9) % PTT (Smith) 23.8 L (24-32) Seconds Sodium 144 H (132-142) mmol/L Plasma Sodium 143 H (130-142) mmol/L Anion Gap 14.1 H (6.8-13.8) mmol/L Random Glucose 66 L (70-110) mg/dL Laboratory Results WBC 8.3 K/mm3 (4.0-10.5) 07/19/18 19:55 RBC 4.55 M/mm3 (4.2-5.4) 07/19/18 19:55 Hgb 12.9 gm/dL (12.5-16.0) 07/19/18 19:55 Hct 40.2 % (37.0-47.0) 07/19/18 19:55 MCV 88.4 fl (78-100) 07/19/18 19:55 MCH 28.4 pg (27-31) 07/19/18 19:55 MCHC 32.1 g/dl (32-36) 07/19/18 19:55 RDW 13.2 % (11.5-14.0) 07/19/18 19:55 Plt Count 273 K/mm3 (150-450) 07/19/18 19:55 MPV 9.6 fl (8-12.5) 07/19/18 19:55 Immature Gran % (Auto) 0.40 % (0.001-0.429) 07/19/18 19:55 Immature Gran # (Auto) 0.03 K/mm3 (0.000-0.0310) 07/19/18 19:55 Neutrophils % 57.4 % (42-75.0) 07/19/18 19:55 Lymphocytes % 30.4 % (20-51) 07/19/18 19:55 Monocytes % 9.8 % (0.0-9) H 07/19/18 19:55 Eosinophils % 1.0 % (0.0-3.0) 07/19/18 19:55 Basophils % 1.0 % (0.0-1.0) 07/19/18 19:55 Nucleated RBC % 0.0 k/mm3 (0-1) 07/19/18 19:55 Neutrophils # 4.8 K/mm3 (1.3-6.0) 07/19/18 19:55 Lymphocytes # 2.53 k/mm3 (1.5-3.5) 07/19/18 19:55 Monocytes # 0.8 k/mm3 (0.0-1.0) 07/19/18 19:55 Eosinophils # 0.1 k/mm3 (0.0-0.7) 07/19/18 19:55 Absolute Basophils 0.1 k/mm3 (0.0-0.1) 07/19/18 19:55 PT 9.9 Seconds (9.1-10.7) 07/19/18 19:55 INR (Anticoag Therapy) 1.00 INR (0.92-1.08) 07/19/18 19:55 PTT (Brenna) 23.8 Seconds (24-32) L 07/19/18 19:55 Sodium 144 mmol/L (132-142) H 07/19/18 19:55 Plasma Sodium 143 mmol/L (130-142) H 07/19/18 19:55 Potassium 3.8 mmol/L (3.4-4.6) 07/19/18 19:55 Chloride 106 mmol/L (97-106) 07/19/18 19:55 Carbon Dioxide 27.7 mmol/L (24-32.6) 07/19/18 19:55 Anion Gap 14.1 mmol/L (6.8-13.8) H 07/19/18 19:55 BUN 19 mg/dL (3-23) 07/19/18 19:55 Creatinine 0.89 mg/dL (0.4-1.4) 07/19/18 19:55 Est GFR (Non-Af Amer) 70 mL/min (60-130) 07/19/18 19:55 BUN/Creatinine Ratio 21.3 (9.0-21.6) 07/19/18 19:55 Random Glucose 66 mg/dL (70-110) L 07/19/18 19:55 Calcium 8.8 mg/dL (7.9-10.9) 07/19/18 19:55 Calcium Adj for Albumin 8.8 mg/dL (8.4-10.2) 07/19/18 19:55 Total Bilirubin 0.2 mg/dL (0.0-1.1) 07/19/18 19:55 AST 22 U/L (0-48) 07/19/18 19:55 ALT 30 U/L (19-67) 07/19/18 19:55 Alkaline Phosphatase 71 U/L (50-170) 07/19/18 19:55 Troponin I Less than 0.017 ng/mL (0.00-0.10) 07/20/18 03:10 Total Protein 7.1 gm/dL (6.2-8.2) 07/19/18 19:55 Albumin 3.6 gm/dl (3.4-5.0) 07/19/18 19:55 Assessment/Plan - Assessment/Plan (1) Chest pain Assessment: AMI ruled out. will schedule her a nuclear pharmacologic stress test as outpatient. Problem: Acute (2) Heart palpitations Assessment: did not catch any tachyarrythmia on tele overnight. will do 48 hour Holter monitor as outpatient. Problem: Acute (3) GERD (gastroesophageal reflux disease) Assessment: continue with dexilant . she ran out of it 3 months ago. she sasy her chest pain was different from when she gets her dyspepsia. Problem: Chronic Qualifiers: (4) S/P bariatric surgery Problem: Chronic (5) Fibromyalgia Assessment: continue with home medications. Problem: Chronic
[2018-07-20] MEDS ORDERED: ENOXAPARIN SODIUM 30 MG/0.3 ML SYRG SC SCH ×2 (08:45→11:00)
--- NOTE | 2018-07-20 08:47 | DS ---
(1) Chest pain Diagnosis(s): AMI ruled out. will schedule a nuclear pharmacologic stress test on outpatient basis. Problem: Acute (2) Heart palpitations Diagnosis(s): will do 48 Holter monitor. Tele overnight showed sinus rhythm with episodes of sinus bradycardia. Problem: Acute (3) GERD (gastroesophageal reflux disease) Diagnosis(s): restart her dexilant. Problem: Chronic Qualifiers: (4) S/P bariatric surgery Problem: Chronic Description of Stay: Laura Thibodeaux is a 57-year-old white female who doctors in [facility] with past medical history of depression, anxiety, gastroesophageal reflux disease, status post gastric bypass, osteopenia , fibromylagia who was admitted on 07/19/2018 for chest pain and palpitation. The patient had dinner date with her but she did not have any appetite and did not eat much. They watched a movie after that and a few minutes into the movie she started having some facial flushing, palpitations associated with chest pressure, 6/10, as if someone was sitting on her chest, nonradiating. She told her to bring her to the emergency room and her pain got better after taking 2 nitroglycerin's after 1 hour. Because of her history of gastric bypass and not able to take aspirin daily they gave her Lovenox. Her troponin and EKG were normal. She was admitted under our chest pain protocol for observation. Her second set of EKG and and troponin were still within normal limits. She no longer had chest pain and AMI was ruled out . Her last Nuclear stress test was in 2013 which was negative. She had missed taking her dexilant for the last 3 months but she says her chest pain was very different from when she gets dyspepsia from her GERD. We did not see any tachyarrythemia in her Telemetry overnight except for NSR and sinus bradycardia. Will schedule her a 48 hour Holter and a nuclear pharmacologic stress test on outpatient basis. Procedures Performed: none Results and Findings: Lab Pending Results 07/19/18 19:55: WBC 8.3, RBC 4.55, Hgb 12.9, Hct 40.2, MCV 88.4, MCH 28.4, MCHC 32.1, RDW 13.2, Plt Count 273, MPV 9.6, Immature Gran % (Auto) 0.40, Immature Gran # (Auto) 0.03, Neutrophils % 57.4, Lymphocytes % 30.4, Monocytes % 9.8 H, Eosinophils % 1.0, Basophils % 1.0, Nucleated RBC % 0.0, Neutrophils # 4.8, Lymphocytes # 2.53, Monocytes # 0.8, Eosinophils # 0.1, Absolute Basophils 0.1 07/19/18 19:55: PT 9.9, INR (Anticoag Therapy) 1.00, PTT (Brenna) 23.8 L 07/19/18 19:55: Sodium 144 H, Plasma Sodium 143 H, Potassium 3.8, Chloride 106, Carbon Dioxide 27.7, Anion Gap 14.1 H, BUN 19, Creatinine 0.89, Est GFR (Non-Af Amer) 70, BUN/Creatinine Ratio 21.3, Random Glucose 66 L, Calcium 8.8, Calcium Adj for Albumin 8.8, Total Bilirubin 0.2, AST 22, ALT 30, Alkaline Phosphatase 7 1, Troponin I Less than 0.017, Total Protein 7.1, Albumin 3.6 07/20/18 03:10: Troponin I Less than 0.017 Discharge Location: Home Disposition: Home self-care Condition: Stable Discharge Activity: Activity as tolerated Discharge Diet: Low fat/chol, Other - bland diet Referrals: Laila Diaz ARNP [Primary Care Provider] - Additional Patient Instructions (free text): Follow up with her PCP in 1 week. Schedule a 48 hour Holter monitor and a nuclear pharmacologic stress test on outpatient. Prescriptions (Any new or edited meds): Nitroglycerin [Nitrostat] 0.4 mg SUBLINGUAL Q5MIN PRN #14 btl PRN Reason: Chest Pain Complete Home Medications List: Complete Home Medication List: Calcium Carbonate/Vitamin D3 [Calcium 600-Vit D3 400 Tablet] 1 ea PO DAILY 10/05/13 Blood-Glucose Meter [Blood Glucose Monitoring] 1 ea MC BID PRN 12/04/16 Cholecalciferol (Vitamin D3) [Vitamin D3] 5,000 unit PO DAILY 12/04/16 Ferrous Sulfate [Iron] 325 mg PO DAILY 12/04/16 Vitamin B Complex 1 ea PO DAILY 12/04/16 TENS unit and electrodes combo pack See Dose Instructions .ROUTE .MEDSUPPLY #1 ea 12/30/17 acetaminophen 500 mg tablet 1,000 mg PO QID PRN tab 12/30/17 blood sugar diagnostic strips See Dose Instructions .ROUTE .MEDSUPPLY #20 ea 12/30/17 fesoterodine ER 4 mg tablet,extended release 24 hr 4 mg PO DAILY 12/30/17 lancets 28 gauge See Dose Instructions .ROUTE .MEDSUPPLY #25 ea 12/30/17 multivitamin capsule 1 cap PO DAILY 12/30/17 gabapentin 300 mg capsule 300 mg PO PRN PRN 02/18/18 dexlansoprazole 30 mg capsule,biphase delayed release 30 mg PO DAILY 05/06/18 mecobalamin (vitamin B12) 5,000 mcg disintegrating tablet 5,000 mcg PO DAILY tab 06/16/18 Nitroglycerin [Nitrostat] 0.4 mg SUBLINGUAL Q5MIN PRN #14 btl 07/20/18 Amb Orders for Discharge: NUC Pharmacological Stress Time Frame: 1 Week, Location: Radiology Holter Monitor 48 Hour Time Frame: 1 Week, Location: Respiratory Therapy
[2018-07-20] MEDS ORDERED: FERROUS SULFATE 325 MG TABLET PO SCH (09:00)
[2018-07-20] MEDS ORDERED: TOLTERODINE TARTRATE 2 MG CAPSULE PO SCH (09:00)
[2018-07-20] MEDS ORDERED: FESOTERODINE FUMARATE 4 MG PO SCH (09:00)
[2018-07-20] MEDS ORDERED: DEXLANSOPRAZOLE 30 MG PO SCH (09:00)
[2018-07-20] MEDS ORDERED: PANTOPRAZOLE SODIUM 20 MG TABLET.DR PO SCH (09:00)
[2018-07-20] MEDS ORDERED: NON-FORMULARY 1 DOSE DOSE (Ferrous Sulfate [Iron] 325 MG) PO SCH (09:00)
[2018-07-20] MEDS ORDERED: CHOLECALCIFEROL 5,000 UNIT TABLET PO SCH (09:00)
[2018-07-20] MEDS ORDERED: MECOBALAMIN 5000 MCG PO SCH (09:00)
[2018-07-20] MEDS ORDERED: MULTIVITAMIN PO SCH (09:00)
[2018-07-20] MEDS ORDERED: CALCIUM CARBONATE/VITAMIN D3 1 TAB TABLET PO SCH (09:00)
[2018-07-20] MEDS ORDERED: VITAMIN B COMPLEX PO SCH (09:00)
[2018-07-20 09:59] VITALS: BP 119/70
== END 2018-07-20 10:10 | disposition home or self-care (01) ==
LOC: ER 19:22 → MS 19:22
PROVIDERS: ADMIT Internal Medicine; ATTEND Internal Medicine
DX: Z98.84 Bariatric surgery status; K21.9 Gastro-esophageal reflux disease without esophagitis; R07.9 Chest pain, unspecified; R00.2 Palpitations
CPT/HCPCS: 36415; 71020; 71046; 80053; 84484; 85025; 85610; 85730; 93005; 96372; 99285; G0378